=== PATIENT | female | born 1980 | race Caucasian/White ===

== ENCOUNTER 2019-03-08 06:34 | Day surgery (SDC) | payer BC ==
[2019-03-08] MEDS ORDERED: PROPOFOL 40 ML (08:09)
== END 2019-03-08 14:06 | disposition home or self-care (01) ==
LOC: GIL 06:34
DX: Z12.11 Encounter for screening for malignant neoplasm of colon (principal); K64.8 Other hemorrhoids
CPT/HCPCS: 45378